=== PATIENT | male | born 1980 | race Caucasian/White ===

== ENCOUNTER 2016-08-14 08:33 | Emergency (ER) | payer MEDICAID ==
[~2016-08-14] VITALS: Ht 177.8 cm; Wt 77.1 kg
[2016-08-14 08:55] VITALS: BP 122/72
== END 2016-08-14 09:21 | disposition home or self-care (01) ==
LOC: ER 08:33
DX: J03.90 Acute tonsillitis, unspecified (principal)

== ENCOUNTER 2016-08-16 18:23 | Emergency (ER) | payer MEDICAID ==
[~2016-08-16] VITALS: Ht 177.8 cm; Wt 77.1 kg
[2016-08-16] MEDS ORDERED: ACETAMINOPHEN 500 MG TAB PO ONE (20:00)
[2016-08-16] MEDS ORDERED: methylPREDNISolone SOD SUCC 125 MG/2 ML VL IM ONE (20:00)
[2016-08-16] MEDS ORDERED: cefTRIAXone SOD 1,000 MG VL IM ONE (20:00)
[2016-08-16 21:26] VITALS: BP 123/65
== END 2016-08-16 21:38 | disposition home or self-care (01) ==
LOC: ER 18:34
DX: J03.90 Acute tonsillitis, unspecified (principal); R51 Headache
CPT/HCPCS: 70486; 96372; 99284; J0696; J2930